=== PATIENT | female | born 2000 | race Two or more races ===

== ENCOUNTER 2024-12-16 03:04 | Inpatient (IN) ==
[2024-12-16] MEDS ORDERED: CALCIUM CARBONATE 500 MG CHEWABLE TAB PO PRN (03:19)
[2024-12-16] MEDS ORDERED: OXYTOCIN 30 UNITS/NSS 30 UNITS/500 ML BAG IV PRN ×2 (03:19→13:20)
[2024-12-16] MEDS ORDERED: ACETAMINOPHEN 325 MG TAB PO PRN (03:19)
[2024-12-16] MEDS ORDERED: LIDOCAINE 1% LOCAL 20 ML VIAL INFIL PRN (03:19)
[2024-12-16] MEDS: LACTATED RINGER'S 1,000 ML IV PRN (03:46)
--- NOTE | 2024-12-16 03:47 | History & Physical Report ---
Date of Service December 16, 2024 Assessment & Plan (1) Post term at 41 weeks gestation: Plan: Intrauterine at 41+ weeks in active labor. Diet-controlled GDM-will check blood sugars every 2 hours until delivery. Requesting epidural analgesia. Anticipate vaginal . Admission and Anticipated Discharge Date Admission Date: December 16, 2024 History of Present Illness Primary Care Provider: NO PCP Patient is a 24-year-old 1 P0 female EDC of 12/08/2024 who presents at 41 and 1/7 weeks in active labor. Her contractions are approximately every 5 minutes and painful. Positive for bloody show but no ruptured membranes. has been complicated by beta thalassemia diet-controlled GDM. testing was reassuring although hemoglobin has been low at 9.2 reflecting the beta thalassemia trait. Blood type B+. 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 Beliefs That Will Affect Care: None marital status: marital status details: Xavi (24) [phone] Current Living Situation: Spouse Current Living Situation Comment: lives wtih spouse, inlaws and sisters current occupational status: unemployed Other Information That Helps Us Care for You: No Feels Safe at Home: Yes Safety Concerns: Feels Safe At This Time Review of Systems All systems reviewed & are unremarkable except as noted in HPI & below Physical Exam Constitutional: WD/WN, vitals as above Psychiatric: A+Ox3, euthymic affect Genitourinary: OB Exam Abdomen: + vertex, + estimated weight (6-7 pounds) and + regular contractions (Q 5 min) Manual OB Exam: + cervical dilation (5-6 cm very posterior), + cervical effacement 90% and + station -1 OB Exam Monitor Tracing: + external FHT monitor used, + external uterine monitor used, + category I and + normal FHT variability Results & Data Vital Signs (Past 12 Hours) Vital Signs Temp Pulse Resp BP 12/16/24 03:26 98.4 F 76 18 126/83 12/16/24 03:20 76 126/83 Coding Level of Care Code 25917 INT INP/OBS CARE MIN Diagnoses Post term at 41 weeks gestation O48.0; Z3A.41
[2024-12-16 04:24] LABS: Hematocrit (blood only) 28.3 % (37.0-47.0); Hemoglobin 9.1 g/dl (12.0-16.0); Mean Corpuscular Hemoglobin 21.2 pg (25.0-34.0); Mean Corpuscular Hgb Conc 32.2 g/dL (32.0-36.0); Nucleated RBC # (auto) 0.02 K/uL (0.00-0.12); Nucleated RBC % (auto) 0.2 %; Platelet Count 163 K/uL (130-400); RDW Coefficient of Variation 15.5 % (11.5-14.5); Red Blood Count 4.29 M/uL (4.20-5.40)
[2024-12-16] MEDS ORDERED: fentANYL 2 MCG/ML BUPIVacaine 0.125%-NSS 100ML BAG EPI PRN (04:34)
[2024-12-16] MEDS ORDERED: BUPIVACAINE 0.25% PF 30 ML VIAL EPI STA (04:34)
[2024-12-16] MEDS ORDERED: BUPIVACAINE 0.25% PF 30 ML VIAL EPI PRN (04:34)
[2024-12-16] MEDS ORDERED: fentaNYL citrate PF 100 MCG/2 ML VIAL EPI STA (04:34)
[2024-12-16] MEDS ORDERED: SODIUM CHLORIDE 0.9% PF INJ 10 ML VIAL EPI STA (04:34)
[2024-12-16] MEDS ORDERED: ePHEDrine sulfate 50 MG/ML AMP IV PRN (04:34)
[2024-12-16] MEDS ORDERED: ROPIVACAINE 0.5% PF 5 MG/ML 20 ML VIAL EPI PRN (04:34)
[2024-12-16] MEDS ORDERED: NALOXONE HCL 0.4 MG/1 ML VIAL/CARP IV PRN (04:34)
[2024-12-16] MEDS ORDERED: LIDOCAINE 2%/EPINEPHRINE 1:200,000 20 ML PF EPI STA (04:34)
[2024-12-16] MEDS ORDERED: SODIUM CHLORIDE 0.9% PF INJ 10 ML VIAL EPI PRN (04:34)
[2024-12-16] MEDS ORDERED: NALOXONE HCL 1 MG in SODIUM CHLORIDE 0.9% 1,000 ML IV PRN (04:34)
[2024-12-16] MEDS ORDERED: diphenhydrAMINE 50 MG/ML VIAL IV PRN (04:34)
[2024-12-16] MEDS ORDERED: LIDOCAINE 2% MPF LOCAL 5 ML VIAL EPI PRN (04:34)
[2024-12-16] MEDS ORDERED: fentaNYL citrate PF 100 MCG/2 ML VIAL EPI PRN (04:34)
[2024-12-16] MEDS ORDERED: NALBUPHINE HCL INJ 10 MG/ML AMP IV PRN (04:34)
--- NOTE | 2024-12-16 04:37 | Anesthesiology Consultation ---
Date of Service December 16, 2024 Assessment & Plan Chart Review Chart Review: Patient NOT seen in Pre Admission Testing and Acceptable Risk for Labor Epidural Consults Requested none ASA ASA2 Proposed Anesthesia Anesthesia Type: Labor Epidural Risk / Benefits Reviewed With: PT / POA / Parent / Guardian, Accepts Plan and Informed Consent Obtained History Height/Weight Height: 5 ft 6.14 in Weight: 73.936 kg Allergies Allergy/AdvReac Type Severity Reaction Status Date / Time No Known Allergies Allergy Verified 12/15/24 10:40 Medications Home Medications Medication Instructions Recorded Confirmed Last Taken prenat.vits,julianne,qlo-ixcs-bydwx 1 tab PO DAILY 04/22/24 12/16/24 12/15/24 Active Medications Generic Name Dose Route Start Last Admin Trade Name Freq PRN Reason Stop Dose Admin Lactated Ringer's 1,000 mls @ 125 mls/hr 12/16/24 03:19 12/16/24 04:16 Lr IV 12/18/24 03:18 125 mls/hr .Q8H PRN Infusion L&D Protocol Protocol NPO Date Last Intake of Fluids: 12/16/24 Time Last Intake of Fluids: 04:00 Date Last Intake of Solids: 12/15/24 Time Last Intake of Solids: 23:00 Exercise / Class Metabolic Activity 1 > 8 Run/Swim/Ski/Tennis Past Anesthesia History No Hx of Anesthesia Complications and No Family Hx of Anesthesia Complications History of PONV No Hx of PONV and No Hx of Motion Sickness Social History Smoking Status: Never smoker Do You Dip or Chew Tobacco: No Hx Alcohol Use: No Hx Substance Use: No Review of Systems ROS Unobtainable: All systems reviewed & are unremarkable except as noted in HPI & below Physical Exam Vital Signs Last Vital Signs Temp 36.9 C 12/16/24 03:26 Pulse 63 12/16/24 04:29 Resp 18 12/16/24 03:26 BP 126/83 12/16/24 03:26 Pulse Ox 99 12/16/24 04:29 ENMT Mouth: no TMJ abnormality Thyromental Distance: > or= 3.5 Finger Breadths Mallampati Class: II Neck normal visual inspection and trachea midline; neck extension not limited Respiratory normal respiratory effort Auscultation: lungs clear to auscultation bilaterally Cardiovascular Rate/Rhythm: regular rate and regular rhythm Heart Sounds: no murmur Musculoskeletal Spine: normal cervical ROM Extremities: full ROM of extremities Neurologic moves all extremities Psychiatric Orientation: alert and oriented x 3 Testing Laboratory Results 12/16/24 04:09 12/16/24 04:02 POC Glucose 90
[2024-12-16] MEDS: fentaNYL citrate PF 100 MCG/2 ML VIAL ONE (04:55)
[2024-12-16] MEDS: BUPIVACAINE 0.25% PF 30 ML VIAL ONE (04:55)
[2024-12-16] MEDS: LIDOCAINE 2%/EPINEPHRINE 1:200,000 20 ML PF ONE (04:55)
[2024-12-16] MEDS: fentANYL 2 MCG/ML BUPIVacaine 0.125%-NSS 100ML BAG ONE (04:58)
--- NOTE | 2024-12-16 08:13 | Labor Progress Brief Note ---
Date of Service December 16, 2024 Subjective comfortable Assessment & Plan (1) Supervision of normal intrauterine in primigravida: Plan arom and now add pitocin, fetus category one. Admission and Anticipated Discharge Date Admission Date: December 16, 2024 Physical Exam Physical Exam: cx--5/80/-2 arom--clear/? yellow toco--q2-4 efm--130s with mod variability, accels to 150s, no decels Results & Data Vital Signs (Past 12 Hours) Vital Signs Temp Pulse Resp BP Pulse Ox 12/16/24 08:09 76 100 12/16/24 08:04 77 99 12/16/24 07:59 75 98 12/16/24 07:56 73 112/56 L 12/16/24 07:54 80 96 12/16/24 07:49 80 99 12/16/24 07:44 69 98 12/16/24 07:43 95 H 116/71 12/16/24 07:39 95 H 99 12/16/24 07:34 78 98 12/16/24 07:29 79 98 12/16/24 07:26 77 121/59 L 12/16/24 07:24 96 H 100 12/16/24 07:19 95 H 97 12/16/24 07:14 80 98 12/16/24 07:11 76 94 12/16/24 07:10 68 111/62 12/16/24 07:09 74 98 12/16/24 07:04 72 100 12/16/24 07:01 37.2 C 12/16/24 06:59 76 99 12/16/24 06:55 71 116/76 12/16/24 06:54 71 98 12/16/24 06:49 71 99 12/16/24 06:44 65 98 12/16/24 06:41 69 122/64 12/16/24 06:39 75 99 12/16/24 06:34 67 96 12/16/24 06:31 66 94 12/16/24 06:29 71 99 12/16/24 06:24 71 99 12/16/24 06:23 68 119/68 12/16/24 06:19 69 98 12/16/24 06:17 69 114/67 12/16/24 06:14 71 99 12/16/24 06:13 71 127/74 12/16/24 06:09 67 100 05 06:07 63 115/68 05 06:04 73 99 05 06:02 68 113/69 05 05:59 75 99 05 05:58 70 124/75 05 05:54 75 99 05 05:52 69 115/73 05 05:49 70 99 05 05:47 68 114/73 05 05:44 73 99 05 05:42 68 116/74 05 05:39 73 99 05 05:37 69 123/76 05 05:34 68 99 05 05:32 72 121/77 05 05:29 75 100 05 05:28 69 127/74 05 05:24 79 100 05 05:23 76 137/80 05 05:19 80 99 05 05:18 72 105/79 05 05:14 78 99 05 05:13 81 114/79 05 05:09 67 99 05 05:07 65 115/73 05 05:04 83 99 05 05:01 75 111/73 05 04:59 99 05 04:59 78 05 04:59 77 107/69 05 04:56 65 117/58 L 05 04:54 84 100 05 04:49 75 100 05 04:44 76 100 05 04:39 61 99 05 04:34 65 99 05 04:29 63 99 05 03:26 36.9 C 76 18 126/83 05 03:20 36.9 C 76 18 126/83 Coding Level of Care Code None Diagnoses Supervision of normal intrauterine in primigravida Z34.00
[2024-12-16] MEDS: OXYTOCIN 30 UNITS/NSS 30 UNITS/500 ML BAG IV PRN (08:37)
--- NOTE | 2024-12-16 11:40 | Labor Progress Brief Note ---
Date of Service December 16, 2024 Subjective comfortable, shaky Assessment & Plan (1) Post term at 41 weeks gestation: Plan begin second stage, fetus category 2, with variables but reassuring. anticipate . Admission and Anticipated Discharge Date Admission Date: December 16, 2024 Physical Exam Physical Exam: cx--c/c/+2 toco--q2-3min efm--120 with jack variability, accels to 170s. variable/early with contractions. Results & Data Vital Signs (Past 12 Hours) Vital Signs Temp Pulse Resp BP Pulse Ox 12/16/24 11:27 74 100 12/16/24 11:26 70 120/82 12/16/24 11:12 63 99 12/16/24 11:11 60 101/57 L 12/16/24 10:57 62 99 12/16/24 10:55 55 L 102/53 L 12/16/24 10:42 64 99 12/16/24 10:40 68 112/59 L 12/16/24 10:27 69 98 12/16/24 10:25 68 107/57 L 12/16/24 10:12 37.0 C 73 99 12/16/24 10:10 67 103/50 L 12/16/24 09:57 68 99 12/16/24 09:56 65 103/50 L 12/16/24 09:42 69 98 12/16/24 09:41 64 102/51 L 12/16/24 09:27 62 98 12/16/24 09:26 60 102/52 L 12/16/24 09:11 67 105/55 L 12/16/24 09:09 64 99 12/16/24 09:04 64 97 12/16/24 08:59 65 98 12/16/24 08:55 62 106/55 L 12/16/24 08:54 65 99 12/16/24 08:49 65 97 12/16/24 08:44 68 97 12/16/24 08:40 69 98/56 L 12/16/24 08:39 73 99 12/16/24 08:34 71 99 12/16/24 08:29 65 98 12/16/24 08:24 61 100 12/16/24 08:19 61 99 12/16/24 08:14 69 99 12/16/24 08:11 69 107/62 05/20/25 08:09 76 100 05/20/25 08:04 77 99 05/20/25 07:59 75 98 05/20/25 07:56 73 112/56 L 05 07:54 80 96 0520/25 07:49 80 99 0520/25 07:44 69 98 05/20/25 07:43 95 H 116/71 0520/25 07:39 95 H 99 0520 07:34 78 98 0520 07:29 79 98 0520/25 07:26 77 121/59 L 05 07:24 96 H 100 0520 07:19 95 H 97 0520 07:14 80 98 0520 07:11 76 94 0520 07:10 68 111/62 0520 07:09 74 98 0520 07:04 72 100 0520 07:01 37.2 C 05 06:59 76 99 052025 06:55 71 116/76 0520/25 06:54 71 98 05/20/25 06:49 71 99 05/20/25 06:44 65 98 05/20/25 06:41 69 122/64 05/20/25 06:39 75 99 05/20/25 06:34 67 96 05/20/25 06:31 66 94 05/20/25 06:29 71 99 05/20/25 06:24 71 99 05/20/25 06:23 68 119/68 05/20/25 06:19 69 98 05/20/25 06:17 69 114/67 05/20/25 06:14 71 99 05/20/25 06:13 71 127/74 05/20/25 06:09 67 100 05/20/25 06:07 63 115/68 05/20/25 06:04 73 99 05/20/25 06:02 68 113/69 05/20/25 05:59 75 99 05/20/25 05:58 70 124/75 05/20/25 05:54 75 99 05/20/25 05:52 69 115/73 05/20/25 05:49 70 99 05/20/25 05:47 68 114/73 05/20/25 05:44 73 99 12/16/24 05:42 68 116/74 12/16/24 05:39 73 99 05 05:37 69 123/76 12/16/24 05:34 68 99 12/16/24 05:32 72 121/77 05 05:29 75 100 12/16/24 05:28 69 127/74 12/16/24 05:24 79 100 12/16/24 05:23 76 137/80 12/16/24 05:19 80 99 05 05:18 72 105/79 12/16/24 05:14 78 99 12/16/24 05:13 81 114/79 12/16/24 05:09 67 99 12/16/24 05:07 65 115/73 12/16/24 05:04 83 99 12/16/24 05:01 75 111/73 12/16/24 04:59 99 12/16/24 04:59 78 12/16/24 04:59 77 107/69 12/16/24 04:56 65 117/58 L 12/16/24 04:54 84 100 12/16/24 04:49 75 100 12/16/24 04:44 76 100 12/16/24 04:39 61 99 12/16/24 04:34 65 99 12/16/24 04:29 63 99 12/16/24 03:26 36.9 C 76 18 126/83 12/16/24 03:20 36.9 C 76 18 126/83 Coding Level of Care Code None Diagnoses Post term at 41 weeks gestation O48.0; Z3A.41
--- NOTE | 2024-12-16 12:56 | Delivery Summary ---
Vaginal Delivery Summary Date of Service December 16, 2024 Vaginal Delivery Summary and 2nd Degree LAC (and left labial) Pre-operative Diagnosis: at 41 weeks active labor gdm Post-operative Diagnosis: same Procedure: epidural arom pit aumentation second degree lac and right labial lac and reapir EBL: 152cc Anesthesia: epidural Procedure: The patient was admitted in active labor. Got epidural. At 5cm had arom and pitocin. Got to c/c/+2 The patient pushed for 30minutes to deliver a viable female in [place] position. The rest of the infant was then delivered easily. The baby was vigorous. The nose and mouth were again bulb suctioned and the was placed in the maternal abdomen for drying and attention. Cord was clamped and cut at one minute of life. Cord blood obtained. Placenta delivered spontaneous, intact with a three vessel cord. Cervix/sulci/rectum were intact. A second degree perineal laceration and right labial lac were repaired in the normal standard fashion. Hemostasis obtained with dilute pitocin and fundal massage. Apgars were 8/9. Mother and baby doing well at the end of the delivery[place] [facility] [place] Charge Delivery Type Details: and 2nd Degree LAC (and left labial)
[2024-12-16] MEDS ORDERED: oxyCODONE/ACETAMINOPHEN 5mg/325mg TAB PO PRN (13:20)
[2024-12-16] MEDS ORDERED: HYDROCORTISONE ACETATE 25 MG SUPP PR PRN (13:20)
[2024-12-16] MEDS ORDERED: bisacodyL 10 MG SUPP PR PRN (13:20)
[2024-12-16] MEDS ORDERED: BENZOCAINE 20% SPRY 85 APPLN/85 GM CAN EXT PRN (13:20)
--- NOTE | 2024-12-16 14:54 | Anesthesia Procedure Note ---
Date of Service December 16, 2024 Anesthesia Post Epidural Note Vital Signs Vital Signs: Temp Pulse Resp BP Pulse Ox 37.1 C 75 18 116/63 98 12/16/24 13:45 12/16/24 14:40 12/16/24 03:26 12/16/24 14:40 12/16/24 12:57 Notes Mental Status: alert / awake / arousable and participated in evaluation Nausea / Vomiting: adequately controlled Pain: adequately controlled Airway Patency, RR, SpO2: stable & adequate BP & HR: stable & adequate Hydration State: stable & adequate Neuraxial Anesthesia: was administered and sensory block is resolving Anesthetic Complications: no major complications apparent Epidural: Removed without complications and With tip intact
[2024-12-16] MEDS: SODIUM CHLORIDE 0.9% PF INJ 10 ML VIAL ONE (15:24)
[2024-12-16] MEDS: ePHEDrine sulfate 50 MG/ML AMP ONE (15:24)
[2024-12-16] MEDS: IBUPROFEN 600 MG TAB PO PRN (20:17)
[2024-12-16] MEDS: DOCUSATE SODIUM 100 MG CAP PO SCH (20:17)
[2024-12-16] MEDS: ACETAMINOPHEN 325 MG TAB PO PRN (23:20)
[2024-12-17 06:49] LABS: Hematocrit (blood only) 23.6 % (37.0-47.0); Hemoglobin 7.6 g/dl (12.0-16.0)
--- NOTE | 2024-12-17 07:07 | Obstetrical Progress Note ---
Date of Service December 17, 2024 Assessment & Plan (1) Encounter for assessment: Plan Overall doing well. Encouraged ambulation to help with soreness /discomfort. All sounds appropriate for pp. hgb is 7.6, from 9.1. Noted, will monitor. Day #:: 1 Subjective Ambulation: limited ambulation Voiding: no voiding problems Passing Gas:: Yes Diet Tolerance:: regular diet Lochia:: Small Feeding Type:: breast feeding Patient notes she is very sore, crampy, back discomfort at epidural site, pain into legs with cramping. interprets for her some this am. Physical Exam Constitutional WD/WN, vitals as above Respiratory normal respiratory effort, lungs clear to auscultation Cardiovascular RRR, no murmur, no edema Extremities: no calf tenderness and no edema Gastrointestinal (Abdomen) soft, nt, nd, ff/nt at u Psychiatric A+Ox3, euthymic affect Results & Data Vital Signs (Past 12 Hours) Vital Signs Temp Pulse Resp BP Pulse Ox O2 Del Method 12/17/24 03:00 36.9 C 88 18 108/67 98 Room Air 12/16/24 23:45 37 C 81 18 110/63 97 Room Air 12/16/24 19:30 Room Air 12/16/24 19:30 36.9 C 84 18 110/75 98 Room Air
[2024-12-17] MEDS: PRENATAL VITAMIN 1 TAB PO SCH (08:45)
[2024-12-17] MEDS: bisacodyL 5 MG TABEC PO SCH (20:11)
[2024-12-17] MEDS: DIPHTHER/TETAN/PERTUS Vaccine (Tdap, Adol/Adult) 0.5mL IM ONE (20:17)
[2024-12-18 00:22] VITALS: BP 112/73
--- NOTE | 2024-12-18 06:26 | Obstetrical Progress Note ---
Date of Service December 18, 2024 Assessment & Plan (1) Encounter for assessment: Plan Anibal is a 24yo PPD 2 s/p with anemia, hgb is 7.6, from 9.1. Overall doing well, VSS. Encouraged ambulation to help with soreness /discomfort. Pain control with ibuprofen Admission and Anticipated Discharge Date Admission Date: December 16, 2024 Supervising Physician Co-Signing Physician Notes Resident Physician Supervision Note: I interviewed and examined the patient. Discussed with Dr. Rm and agree with findings and plan as documented in the note. Any exceptions or clarifications are listed here: PP2 s/p . Anemia noted from yesterday but asymptomatic. Stable for dc Documented By: Gabriela Harris MD Subjective Anibal is a 24yo PPD 2 s/p with anemia Feels overall well but tired Ambulation: yes Void: urinating, no BM Gas: yes Lochia: small Diet: tolerating well Feeding plan: breast, going well so far Sx: had a short spell of dizziness and SOB yesterday 12/17 while in bed but otherwise no concerns Physical Exam Physical Exam: Gen: appearing tired but in no acute distress CV: RRR, no m/r/g Resp: clear to auscultation b/l GI/Abd: exam deferred due to abdominal discomfort LE: no edema observed, nontender to palpation Results & Data Vital Signs (Past 12 Hours) Vital Signs Temp Pulse Resp BP Pulse Ox O2 Del Method 12/17/24 23:00 36.6 C 83 18 112/73 99 Room Air 12/17/24 19:35 36.7 C 92 H 20 116/71 99 Room Air Resident Activity Tracking Resident Involvement: Resident Care Provided Care Provided: OB Delivery (1) Encounter for assessment visit type: exam and care immediately after delivery Qualified Code(s): Z39.0 - Encounter for care and examination of mother immediately after delivery
[2024-12-18 07:23] VITALS: PULSE 86; RESP 16; TEMP 98.1; O2SAT 98
== END 2024-12-18 13:10 | disposition home or self-care (01) | DRG 807 ==
LOC: OPB 03:04 → 4S1 03:07 → 4E2 16:45